=== PATIENT | male | born 1995 | race African-American/Black ===

== ENCOUNTER 2021-08-19 15:29 | Outpatient (REF) | payer OTHER, SELFPAY ==
[2021-08-19 15:46] LABS: MANUAL DIFF FLAG NO
[2021-08-19 16:15] LABS: Basophils Percent Auto 0.4 % (0-2); Eosinophils Absolute Auto 0.3 X10*3/uL (0.0-0.4); Eosinophils Percent Auto 3.7 % (0-4); Hematocrit 46.3 % (42.0-52.0); Hemoglobin 14.9 g/dl (14.0-18.0); Imm Gran Abs Auto 0.02 X10*3/uL (0.00-0.03); Imm Gran Pct Auto 0.3 % (0.0-0.4); Lymphocytes Absolute Auto 2.3 X10*3/uL (1.2-4.9); Lymphocytes Percent Auto 30.7 % (20-40); Mean Corpuscular HGB Conc 32.2 g/dl (31.0-36.0); Mean Corpuscular Hemoglobin 26.6 pg (27.0-33.0); Mean Corpuscular Volume 82.7 fL (80.0-98.0); Mean Platelet Volume 9.4 fL (9.4-12.4); Monocytes Absolute Auto 0.5 X10*3/uL (0.1-1.2); Monocytes Percent Auto 6.5 % (2-11); Neutrophils Absolute Auto 4.3 x10*3/uL (2.0-8.3); Neutrophils Percent Auto 58.4 % (45-73); Platelet Count 325 X10*3/uL (160-400); Red Cell Distribution Width 12.2 % (11.0-16.0); White Blood Count 7.4 X10*3/uL (4.8-10.8)
[2021-08-19 16:29] LABS: Alanine Aminotransferase 14 U/L (0-40); Albumin Level 4.9 g/dL (3.5-5.0); Alkaline Phosphatase 47 U/L (39-117); Anion Gap 14 (12-20); Aspartate Amino Transferase 20 U/L (5-37); Bilirubin Total 1.1 mg/dL (0.0-1.0); Blood Urea Nitrogen 11 mg/dL (9-16); Calcium 10.2 mg/dL (8.4-10.2); Carbon Dioxide 26 mmol/L (22-29); Chloride 104 mmol/L (96-108); Estimated Glomerular Filt Rate > 60; Glucose Random 87 mg/dL (60-115); Potassium 4.3 mmol/L (3.3-5.1); Sodium 140 mmol/L (135-145); Total Protein 7.8 g/dL (6.5-8.0)
[2021-08-20 07:54] LABS: CT PCR NOT DETECTED (Not Detect.); NG PCR NOT DETECTED (Not Detect.)
[2021-08-26 17:51] LABS: HSV 1 IgM IFA Negative (Negative); HSV 2 IgM IFA Negative (Negative)
== END 2021-08-19 15:30 | disposition home or self-care (01) ==
LOC: HO.LAB 15:29
PROVIDERS: PCP Internal Medicine; Visit Provider Internal Medicine
DX: Z00.00 Encounter for general adult medical examination without abnormal findings (principal); I10 Essential (primary) hypertension; Z11.3 Encounter for screening for infections with a predominantly sexual mode of transmission; Z13.31 Encounter for screening for depression; Z11.8 Encounter for screening for other infectious and parasitic diseases
CPT/HCPCS: 80053; 85025; 86695; 86696; 87491; 87591

== ENCOUNTER 2022-10-06 16:01 | Emergency (ER) | payer OTHER, SELFPAY ==
[2022-10-06 16:19] VITALS: BP 146/82; PULSE 66; RESP 18; TEMP 36.6; O2SAT 97; BMI 25.8
--- NOTE | 2022-10-06 16:20 | ED_ITS ---
HPI - General Adult General Chief complaint: Back Pain/Injury Stated complaint: Upper back pain Time Seen by Provider: 10/06/22 18:14 History of Present Illness HPI narrative: patient with 2 complaints, 1st complaint is he was exposed to chlamydia and wants to be tested and treated, he says he recently did have some scant discharge but no discharge now no sores no dysuria Second complaint is he slept in his car and now has pain in the right trapezius and right upper back area, no numbness no weakness no tingling no chest pain no shortness of breath Related Data Previous Rx's Medication Instructions Recorded acetaminophen 500 mg tablet 1,000 mg PO QID PRN pain #30 tabs 10/06/22 cyclobenzaprine 5 mg tablet 10 mg PO TID PRN muscle spasm #10 10/06/22 tabs doxycycline hyclate 100 mg capsule 100 mg PO BID 7 days #14 caps 10/06/22 ibuprofen 600 mg tablet 600 mg PO Q6H PRN pain #20 tabs 10/06/22 Allergies Allergy/AdvReac Type Severity Reaction Status Date / Time No Known Allergies Allergy Unverified 01/24/20 16:22 [facility] Past Medical History Source: nursing notes reviewed Social History Social History Alcohol intake: never Physical Exam ED Vital Signs: Vital Signs - 24 hr 10/06/22 16:19 Temperature 98 F Pulse Rate 66 Respiratory Rate 18 Blood Pressure 146/82 H Pulse Oximetry 97 Oxygen Delivery Method Room Air BMI result Body Mass Index 25.8 General appearance no acute distress Head is normocephalic atraumatic Neck is supple with full range of motion but some discomfort on lateral movement, there was tenderness to bilateral paraspinal soft tissue areas on the neck as well as both trapezius muscles but no midline tenderness, skin of the neck was normal There is no respiratory distress no chest wall tenderness, lungs were clear to auscultation bilateral Abdomen soft nontender Genital exam there are no lesions or sores there is no testicular swelling or tenderness there is no discharge Extremities full range of motion x4 Course Course Course Narrative: This is an RME: Additional HPI, ROS, PE not included below will be deferred to primary provider. 27 y/o M presenting to the ER with complaints of back pain since sleeping in his car last night. Also requesting STI testing, ? exposure several weeks ago. No urinary symptoms. Plan: urine gc/chlamydia testing Patient is treated with Rocephin and Zithromax for STD exposure, he is tested as well , and advised to inform partners and no sex tool all partners or treated For his right trapezius and shoulder pain he is treated with Motrin and muscle relaxer, no red flags, no radiation of pain no muscle weakness no loss of sensation no change to bowel or bladder Medications Administered Discontinued Medications Generic Name Dose Route Start Last Admin Trade Name Freq PRN Reason Stop Dose Admin Azithromycin 1,000 mg 10/06/22 18:43 10/06/22 19:04 Azithromycin 500 Mg Tablet PO 10/06/22 18:44 1,000 mg ONCE ONE Administration Ceftriaxone Sodium 500 mg/ 0 mg 10/06/22 18:43 10/06/22 19:03 Lidocaine HCl 1 ml IM 10/06/22 18:44 1 kit ONCE ONE Administration Medical Decision Making Lab Data Labs: Lab Results 10/06/22 Range/Units 19:06 Chlam trachomat DNA PCR NOT DETECTED (Not Detect.) N.gonorrhoeae DNA (PCR) NOT DETECTED (Not Detect.) Discharge Plan Discharge Clinical Impression: Back strain, Exposure to STD Patient Disposition: Home, Self-Care Additional Instructions: we treated with Rocephin and Zithromax for STD exposure, as well as a prescription for doxycycline Follow with clinic for further testing Informal partners No sex until treatment is completed and all partners are informed and treated For the shoulder and upper back pain use Motrin and Tylenol as needed, you can use muscle relaxer but he must have to wait 8 [address] before [address] a car as it could produce dizziness if shoulder pain continues you could follow with orthopedist Return any time any worse condition or any concerns Prescriptions: New acetaminophen 500 mg tablet 1,000 mg PO QID PRN (Reason: pain) Qty: 30 0RF ibuprofen 600 mg tablet 600 mg PO Q6H PRN (Reason: pain) Qty: 20 0RF cyclobenzaprine 5 mg tablet 10 mg PO TID PRN (Reason: muscle spasm) Qty: 10 0RF doxycycline hyclate 100 mg capsule 100 mg PO BID 7 Days Qty: 14 0RF Referrals: Elvin Jorge MD [Physician] - ( right shoulder pain) Stand Alone Forms: Work/School Release Interventions: ED Discharge Assessment Last Done: 10/06/22 19:16 Discharge Date/Time: 10/06/22 19:19
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
--- OUTSIDE RECORDS SUMMARY | 2022-10-06 18:22 | XMS_ITS | Continuity of Care Document ---
Author Name Unknown Organization [facility] Address [address] [place] [address]- Care Team Providers Care Newspaper Library Manager Name Role Phone Stephanie BRICEÑO, Sulaiman Yepez Primary Care Physician Encounter [facility] Date(s): 10/29/20 - 11/05/20 [facility] [address] [place], [place] [address] Encounter Diagnosis Pharyngitis(Discharge Diagnosis) - 10/29/20 Attending Physician: Rolando Escoto MD Referring Physician: Sulaiman Brown MD Allergies, Adverse Reactions, Alerts Substance Reaction Severity Status No known allergies Active Medications clindamycin 150 mg oral capsule 3 capsule = 450 mg, By Mouth, Every 8 hours, # 63 capsule, 0 Refills, Maintenance, Capsule Start Date: 02/28/10 Stop Date: 03/07/10 Status: Ordered penicillin V potassium 500 mg oral tablet 1 tablet = 500 mg, By Mouth, Every 8 hours, for 10 days, on an empty stomach, # 30 tablet, 0 Refills, Acute 11/08/20 12:34:00 EDT, 10/29/20 12:34:00 EDT, Tablet, [facility]/pharmacy #[id number], Partial fill uponpatient request if the prescription is for a schedu... Start Date: 10/29/20 Stop Date: 11/08/20 Status: Ordered Zoloft 100 mg oral tablet 1 tablet, By Mouth, Daily, # 30 tablet, 0 Refills, Maintenance, Tablet Start Date: 02/25/10 Status: Ordered Problem List Diagnosis Diagnosis Type Effective Dates Health Status Clini zaid Service Informant Pharyngitis Discharge Diagnosis 10/29/20
--- OUTSIDE RECORDS SUMMARY | 2022-10-06 18:22 | XMS_ITS | Continuity of Care Document ---
Author Name Unknown Organization [facility] Address [address] [place] [address]- Care Team Providers Care Slotter Operator Name Role Phone Stephanie BRICEÑO, Sulaiman Yepez Primary Care Physician Encounter [facility] Date(s): 10/29/20 - 11/28/20 [facility] [address] [place], [place] [address] Attending Physician: Jacob Tse Admitting Physician: Jacob Tse Referring Physician: AdmtrJacob Allergies, Adverse Reactions, Alerts Substance Reaction Severity Status No known allergies Active Medications clindamycin 150 mg oral capsule 3 capsule = 450 mg, By Mouth, Every 8 hours, # 63 capsule, 0 Refills, Maintenance, Capsule Start Date: 02/28/10 Stop Date: 03/07/10 Status: Ordered Zoloft 100 mg oral tablet 1 tablet, By Mouth, Daily, # 30 tablet, 0 Refills, Maintenance, Tablet Start Date: 02/25/10 Status: Ordered
[2022-10-06 19:03] VITALS: BP 148/79; PULSE 80; RESP 18; O2SAT 100
[2022-10-06] MEDS: cefTRIAXone sodium 500 MG, Lidocaine HCl 1 % MPF 1 ML IM (19:03)
[2022-10-06] MEDS: Azithromycin 500 MG TABLET 1000 MG PO (19:04)
[2022-10-07 02:37] LABS: CT PCR NOT DETECTED (Not Detect.); NG PCR NOT DETECTED (Not Detect.)
== END 2022-10-06 19:19 | disposition home or self-care (01) ==
PROVIDERS: Physician Assistant Medical; Emergency Provider Student in an Organized Health Care Education/Training Program
DX: S29.012A Strain of muscle and tendon of back wall of thorax, initial encounter (principal); X50.1XXA Overexertion from prolonged static or awkward postures, initial encounter; Z20.2 Contact with and (suspected) exposure to infections with a predominantly sexual mode of transmission; Y93.84 Activity, sleeping; Y92.810 Car as the place of occurrence of the external cause; Y99.9 Unspecified external cause status
CPT/HCPCS: 0353U; 96372; 99284; J0696

== ENCOUNTER 2022-10-13 16:01 | Outpatient (REF) | payer OTHER, SELFPAY ==
[2022-10-13 16:23] LABS: MANUAL DIFF FLAG NO
[2022-10-13 17:23] LABS: Basophils Percent Auto 0.3 % (0-2); Eosinophils Absolute Auto 0.2 X10*3/uL (0.0-0.4); Eosinophils Percent Auto 2.6 % (0-4); Hemoglobin 13.7 g/dl (14.0-18.0); Imm Gran Abs Auto 0.02 X10*3/uL (0.00-0.03); Imm Gran Pct Auto 0.3 % (0.0-0.4); Lymphocytes Absolute Auto 1.6 X10*3/uL (1.2-4.9); Lymphocytes Percent Auto 21.9 % (20-40); Mean Corpuscular HGB Conc 32.6 g/dl (31.0-36.0); Mean Corpuscular Hemoglobin 26.9 pg (27.0-33.0); Mean Corpuscular Volume 82.4 fL (80.0-98.0); Mean Platelet Volume 9.4 fL (9.4-12.4); Monocytes Absolute Auto 0.5 X10*3/uL (0.1-1.2); Neutrophils Absolute Auto 5.1 x10*3/uL (2.0-8.3); Neutrophils Percent Auto 68.9 % (45-73); Platelet Count 328 X10*3/uL (160-400); Red Cell Distribution Width 13.2 % (11.0-16.0); White Blood Count 7.4 X10*3/uL (4.8-10.8)
[2022-10-13 17:55] LABS: Alanine Aminotransferase 27 U/L (0-40); Albumin Level 4.5 g/dL (3.5-5.0); Alkaline Phosphatase 53 U/L (39-117); Anion Gap 13 (12-20); Aspartate Amino Transferase 23 U/L (5-37); Bilirubin Total 0.8 mg/dL (0.0-1.0); Blood Urea Nitrogen 10 mg/dL (9-16); Calcium 9.8 mg/dL (8.4-10.2); Carbon Dioxide 23 mmol/L (22-29); Chloride 108 mmol/L (96-108); Cholesterol 151 mg/dL; Estimated Glomerular Filt Rate > 60; Glucose Random 107 mg/dL (60-115); HDL Cholesterol 67 mg/dL; LDL Cholesterol Calculated 41 mg/dl; Sodium 140 mmol/L (135-145); Total Protein 7.4 g/dL (6.5-8.0); Triglycerides 217 mg/dL
[2022-10-14 03:20] LABS: CT PCR NOT DETECTED (Not Detect.); NG PCR NOT DETECTED (Not Detect.)
[2022-10-15 07:49] LABS: HIV AB/AG Nonreactive (Nonreactive)
[2022-10-15 07:51] LABS: Syphilis Screen Nonreactive (Nonreactive)
== END 2022-10-13 16:02 | disposition home or self-care (01) ==
LOC: HO.LAB 16:01
PROVIDERS: PCP Internal Medicine; Visit Provider Internal Medicine
DX: Z00.00 Encounter for general adult medical examination without abnormal findings (principal); M54.6 Pain in thoracic spine; F12.988 Cannabis use, unspecified with other cannabis-induced disorder; Z11.3 Encounter for screening for infections with a predominantly sexual mode of transmission; Z13.31 Encounter for screening for depression; Z72.0 Tobacco use
CPT/HCPCS: 0353U; 80053; 80061; 85025; 86780; 87389

== ENCOUNTER 2022-11-30 10:09 | Emergency (ER) | payer OTHER, SELFPAY ==
--- NOTE | ~2022-11-30 | XR_ITS ---
EXAMINATION: XR WRIST, LEFT CLINICAL INFORMATION: Left wrist pain status post fall. COMPARISON: None available. TECHNIQUE: PA, lateral, scaphoid and oblique views of the left wrist. FINDINGS: The bones and soft tissues are normal. No fracture. Alignment is anatomic with normal joint spaces. No erosions or abnormal soft tissue calcifications. XR/XR wrist LT 2V IMPRESSION: Unremarkable left wrist.
--- NOTE | ~2022-11-30 | XR_ITS ---
EXAMINATION: XR HAND, LEFT CLINICAL INFORMATION: Left hand pain status post fall. COMPARISON: None available. TECHNIQUE: PA, lateral, and oblique views of the left hand. FINDINGS: The bones and soft tissues are normal. No fracture. Alignment is anatomic. Joint spaces are maintained. No erosions or soft tissue calcifications. XR/XR hand LT min 3V IMPRESSION: Unremarkable left hand.
[2022-11-30 10:28] VITALS: BP 129/87; PULSE 80; RESP 18; TEMP 36.6; O2SAT 96; BMI 26.3
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
== END 2022-11-30 12:20 | disposition home or self-care (01) ==
PROVIDERS: Emergency Provider Emergency Medicine; PCP Internal Medicine
DX: S63.502A Unspecified sprain of left wrist, initial encounter (principal); S66.912A Strain of unspecified muscle, fascia and tendon at wrist and hand level, left hand, initial encounter; W18.39XA Other fall on same level, initial encounter; Y93.9 Activity, unspecified; Y92.9 Unspecified place or not applicable; Y99.9 Unspecified external cause status
CPT/HCPCS: 73100; 73130; 99283

== ENCOUNTER 2023-01-26 14:26 | Outpatient (REF) | payer OTHER, SELFPAY ==
[2023-01-26 18:30] LABS: CT PCR NOT DETECTED (Not Detect.); NG PCR NOT DETECTED (Not Detect.)
[2023-01-27 09:37] LABS: Herpes Simplex Type 2 IgG <0.90 index
== END 2023-01-26 14:27 | disposition home or self-care (01) ==
LOC: HO.LAB 14:26
PROVIDERS: PCP Internal Medicine; Visit Provider Internal Medicine
DX: A60.00 Herpesviral infection of urogenital system, unspecified (principal); R36.9 Urethral discharge, unspecified; Z20.2 Contact with and (suspected) exposure to infections with a predominantly sexual mode of transmission
CPT/HCPCS: 0353U; 86695; 86696

== ENCOUNTER 2023-10-25 10:39 | Outpatient (REF) | payer OTHER, SELFPAY ==
[2023-10-25 13:17] LABS: MANUAL DIFF FLAG NO
[2023-10-25 13:33] LABS: Basophils Percent Auto 0.7 % (0-2); Eosinophils Absolute Auto 0.5 X10*3/uL (0.0-0.4); Hematocrit 44.6 % (42.0-52.0); Hemoglobin 14.6 g/dl (14.0-18.0); Imm Gran Abs Auto 0.01 X10*3/uL (0.00-0.03); Imm Gran Pct Auto 0.2 % (0.0-0.4); Lymphocytes Absolute Auto 2.2 X10*3/uL (1.2-4.9); Lymphocytes Percent Auto 37.1 % (20-40); Mean Corpuscular HGB Conc 32.7 g/dl (31.0-36.0); Mean Corpuscular Hemoglobin 26.8 pg (27.0-33.0); Mean Corpuscular Volume 81.8 fL (80.0-98.0); Mean Platelet Volume 9.2 fL (9.4-12.4); Monocytes Absolute Auto 0.4 X10*3/uL (0.1-1.2); Neutrophils Absolute Auto 2.8 x10*3/uL (2.0-8.3); Platelet Count 323 X10*3/uL (160-400); Red Blood Count 5.45 X10*6/uL (4.60-5.80); Red Cell Distribution Width 12.2 % (11.0-16.0); White Blood Count 5.9 X10*3/uL (4.8-10.8)
[2023-10-25 13:47] LABS: Alanine Aminotransferase 17 U/L (0-40); Albumin Level 4.8 g/dL (3.5-5.0); Alkaline Phosphatase 54 U/L (39-117); Anion Gap 12 (12-20); Aspartate Amino Transferase 20 U/L (5-37); Bilirubin Total 0.6 mg/dL (0.0-1.0); Blood Urea Nitrogen 9 mg/dL (9-16); Calcium 9.5 mg/dL (8.4-10.2); Carbon Dioxide 26 mmol/L (22-29); Chloride 107 mmol/L (96-108); Estimated Glomerular Filt Rate > 60; Glucose Random 110 mg/dL (60-115); Sodium 141 mmol/L (135-145); Total Protein 7.8 g/dL (6.5-8.0)
[2023-10-25 15:04] LABS: CT PCR NOT DETECTED (Not Detect.); NG PCR NOT DETECTED (Not Detect.)
[2023-10-26 03:58] LABS: Syphilis Screen Nonreactive (Nonreactive)
[2023-10-26 04:26] LABS: HIV AB/AG Nonreactive (Nonreactive); HIV Num 1 0.05 S/CO (0.00-0.99)
== END 2023-10-25 10:40 | disposition home or self-care (01) ==
LOC: HO.10HDL 10:39
PROVIDERS: Visit Provider Internal Medicine
DX: Z00.00 Encounter for general adult medical examination without abnormal findings (principal); F17.201 Nicotine dependence, unspecified, in remission; F32.9 Major depressive disorder, single episode, unspecified; Z11.3 Encounter for screening for infections with a predominantly sexual mode of transmission
CPT/HCPCS: 0353U; 80053; 85025; 86780; 87389